=== PATIENT | female | born 1995 | race Caucasian/White ===

== ENCOUNTER 2021-10-17 13:45 | Inpatient (IN) | payer OTHER, SELFPAY ==
--- NOTE | ~2021-10-17 | CT_ITS ---
EXAMINATION: CT HEAD WITHOUT CONTRAST CLINICAL INFORMATION: Psychosis. Rule out mass. COMPARISON: None TECHNIQUE: Contiguous axial imaging was performed from the skull base to vertex without intravenous administration of contrast. This CT examination was performed using dose optimization techniques as appropriate, variously including the following: *Automated exposure control *Adjustment of mA and/or kV according to patient size (this includes techniques or standardized protocols for targeted exams where dose is matched to indication/reason for exam; i.e. extremities or head) *Use of iterative reconstruction technique DLP: 771 mGy-cm FINDINGS: There is no evidence of acute intracranial hemorrhage or territorial infarction. No abnormal mass effect or midline shift is seen. Carvalho to white matter differentiation is well preserved. No extra-axial fluid collections are identified. There are moderate degenerative changes in the right TMJ. The ventricles are normal in size. There is no abnormal attenuation within the brain parenchyma. The osseous structures and soft tissues are normal. The mastoid air cells and visualized portions of the paranasal sinuses are well aerated. CT/CT head/brain wo con IMPRESSION: No acute intracranial pathology.
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
[2021-10-17 14:10] VITALS: BP 118/98; BP 121/89; PULSE 74; PULSE 98; RESP 18; TEMP 37; O2SAT 98; BMI 23.7
[2021-10-17 14:48] LABS: MANUAL DIFF FLAG NO
[2021-10-17 14:53] LABS: Basophils Percent Auto 0.5 % (0-2); Eosinophils Absolute Auto 0.1 X10*3/uL (0.0-0.4); Eosinophils Percent Auto 1.4 % (0-4); Hematocrit 40.9 % (37.0-47.0); Imm Gran Abs Auto 0.01 X10*3/uL (0.00-0.03); Imm Gran Pct Auto 0.2 % (0.0-0.4); Lymphocytes Absolute Auto 2.2 X10*3/uL (1.2-4.9); Lymphocytes Percent Auto 34.3 % (20-40); Mean Corpuscular HGB Conc 34.2 g/dl (31.0-35.0); Mean Corpuscular Hemoglobin 31.1 pg (27.0-33.0); Mean Corpuscular Volume 90.9 fL (80.0-98.0); Mean Platelet Volume 9.4 fL (9.4-12.3); Monocytes Absolute Auto 0.4 X10*3/uL (0.1-1.2); Monocytes Percent Auto 5.6 % (2-11); Neutrophils Absolute Auto 3.6 x10*3/uL (2.0-8.3); Platelet Count 242 X10*3/uL (160-400); Red Cell Distribution Width 12.2 % (11.0-16.0); White Blood Count 6.3 X10*3/uL (4.8-10.8)
[2021-10-17 15:09] LABS: Alanine Aminotransferase 8 U/L (0-31); Albumin Level 4.1 g/dL (3.5-5.0); Alkaline Phosphatase 53 U/L (39-117); Anion Gap 10 (12-20); Aspartate Amino Transferase 13 U/L (5-31); Bilirubin Direct 0.3 mg/dL (0.0-0.5); Bilirubin Total 0.5 mg/dL (0.0-1.0); Blood Urea Nitrogen 12 mg/dL (9-16); Calcium 9.3 mg/dL (8.4-10.2); Carbon Dioxide 23 mmol/L (22-29); Chloride 110 mmol/L (96-108); Creatinine Clr Calc Pharmacy 117.1; Estimated Glomerular Filt Rate > 60; Glucose Random 87 mg/dL (60-115); Sodium 139 mmol/L (135-145); Total Protein 6.7 g/dL (6.5-8.0)
[2021-10-17 15:31] LABS: COVID-19 Test Negative (Negative)
[2021-10-17 15:43] VITALS: BP 125/82; PULSE 77; TEMP 36.8; O2SAT 100
--- NOTE | 2021-10-17 16:09 | MHC.CARE ---
Patient belongings (except her phone which is with nursing staff on S3) are in locker 11 in the POD.
[2021-10-17 20:06] LABS: Appearance Urine HAZY; Color Urine DK YELLOW; Glucose Urine UA NEG (NEG); Leukocyte Esterase Urine NEG (NEG); Nitrite Urine NEG (NEG); PH 5.5 (5.0-8.0); Specific Gravity - Urine >= 1.030 (1.005-1.025); Urine Blood 2+ (NEG); Urine Ketones NEG (NEG); Urine Protein TRACE MG/DL (NEG-TRACE)
[2021-10-17 20:07] LABS: UPreg QC Valid YES; Urine Pregnancy NEGATIVE (NEGATIVE)
[2021-10-17 20:14] LABS: Bacteria Urine 3+ /LPF; Mucus Urine 4+ /LPF; RBC Urine 0-2 /HPF (0); Squamous Epithelial Cell Urine 3+ /LPF
[2021-10-17 20:21] LABS: Amphetamine Screen Urine Not Detected (Not Detect); Barbiturates, Urine Not Detected (Not Detect); Benzodiazepines Screen Urine Not Detected (Not Detect); Cannabinoid Screen Urine Not Detected (Not Detect); Cocaine Screen Urine Not Detected (Not Detect); Fentanyl, urine Not Detected (Not Detect); Opiate Screen Urine Not Detected (Not Detect); Phencyclidine Screen Urine Not Detected (Not Detect)
--- NOTE | 2021-10-18 06:17 | PC.NURSE ---
Patient slept through the night, no distress observed/reported, patient remained isolated in her room, calm and quiet, no behavior concern at this time, patient is currently no ton any medication, disposition per care team is section 12 inpatient bed search, vss, will continue to monitor.
[2021-10-18 06:25] VITALS: BP 119/65; PULSE 96; RESP 18; TEMP 37.5; O2SAT 100
--- NOTE | 2021-10-18 08:08 | PC.NURSE ---
Pt has been awake, alert, eating full breakfast tray. Sat with this RN for a short time and voiced question as to why she is going inpatient. CARE team will f/u and speak with patient again this am. Pt denies SI, states she struggled with her parents which is what lead her to the ED. Also requested that patient be tested for STDs and concerned that she ate salmon with worms in it. This rn reassured patient that test results will be reviewed.
--- NOTE | 2021-10-18 13:32 | PC.NURSE ---
Anders, Dad. asking to speak wtih patient. pt declining at this time. [phone]
[2021-10-18 14:28] VITALS: BP 129/92; PULSE 75; RESP 18; TEMP 36.7; O2SAT 99
--- NOTE | 2021-10-18 14:36 | PC.NURSE ---
Gonorrheal/chlamydia test pending. Pt will be admitted to inpatient psych at [facility] and chooses to await results before taking prophylactic meds.
--- NOTE | 2021-10-18 15:05 | MHC.CARE ---
Patient determined to need inpatient psychiatric treatment, if she will not sign a CV, she will be admitted on a Section 12B by psychiatry.
[2021-10-18 16:12] LABS: CT PCR NOT DETECTED (Not Detect.); NG PCR NOT DETECTED (Not Detect.)
--- NOTE | 2021-10-18 17:41 | PC.NURSE ---
sitting in common area reading bible. awaits admission to M3.
--- NOTE | 2021-10-18 18:04 | PC.NURSE ---
RN to RN with Mary on M3. waiting for authorization.
[2021-10-18 19:47] LABS: COVID-19 Test Negative (Negative)
[2021-10-18 23:45] VITALS: BP 116/84; PULSE 89; RESP 18; TEMP 36.6; O2SAT 100; BMI 22.0
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
[2021-10-19 08:30] VITALS: BP 109/68; PULSE 90; TEMP 36.2
[2021-10-19] MEDS: Multivitamin TABLET 1 TAB PO (09:05)
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
[2021-10-19 18:00] VITALS: BP 99/59; PULSE 63; RESP 16; TEMP 36.4; O2SAT 95
[2021-10-19] MEDS: Lithium Carbonate ER 300 MG TABLET.ER 600 MG PO (22:05)
[2021-10-20 09:02] VITALS: BP 129/91; PULSE 72; RESP 16; TEMP 36.5; O2SAT 100
[2021-10-20] MEDS: Multivitamin TABLET 1 TAB PO (09:04)
--- NOTE | 2021-10-20 21:01 | P.PNPSI_ITS ---
Subjective Subjective Date of Service: 10/20/21 Reason For Visit: Mood Interim History: pt seen after she showered. calm, cooperative. slept well overnight, took the lithium. expresses sadness about her family members who have passed. spending her time copying passages from a muslim book she has into a notebook. also enjoying painting. denies SI/HI/AVH. less focused on scape-goating her parents. per staff, calm and cooperative. attended group this morning. received lithium last night. sleeping well. Mental Status Exam Mental Status Exam Narrative: dressed in hospital attire. adequately groomed. no PMA/PMR. poor eye contact. cooperative. speech nml in rate, amount, loudness, tone, latency. thoughts often linear in direct response to questions but somewhat more loose and tangential spontaneously. no paranoid delusions regarding her parents expressed, some bizarre thought content however.. affect constricted, non- labile, hypo-intense. mood well. denies SI/HI/AVH. Diagnostics Vital Signs (24Hr): Vital Signs - 24 hr 10/20/21 09:02 Temperature 97.7 F Pulse Rate 72 Respiratory Rate 16 Blood Pressure 129/91 H Pulse Oximetry 100 BMI result Body Mass Index 22.0 Labs Results: 10/17/21 14:41 10/17/21 14:41 Medications Medications Current Medications Acetaminophen (Acetaminophen 325 Mg Tablet) 650 mg PO Q6H PRN PRN Reason: Headache/Pain Mild Scale (1-3) Al Hydroxide/Mg Hydroxide (Magnesium Hydrox/Alum Hydrox 30 Ml Oral.Susp) 30 ml PO Q6H PRN PRN Reason: Heartburn/Nausea Hydroxyzine HCl (Hydroxyzine Hcl 25 Mg Tablet) 25 mg PO BEDTIME PRN PRN Reason: Anxiety [place] Carbonate ([place] Carbonate Er 300 Mg Tablet.Er) 600 mg PO BEDTIME [facility] Last Admin: 10/19/21 22:05 Dose: 600 mg Documented by: Magnesium Hydroxide (Milk Of Magnesia 30 Ml Oral.Susp) 30 ml PO DAILY PRN PRN Reason: Constipation Multivitamins/Vitamin C (Multivitamin Tablet) 1 tab PO DAILY CAM Last Admin: 10/20/21 09:04 Dose: 1 tab Documented by: Trazodone HCl (Trazodone Hcl 50 Mg Tablet) 50 mg PO BEDTIME PRN PRN Reason: Insomnia Allergies Allergies Allergy/AdvReac Type Severity Reaction Status Date / Time clarithromycin [From Biaxin] Allergy Altered Verified 10/17/21 14:27 Sense of Taste Pork/Porcine Containing AdvReac Stomach Verified 10/17/21 14:30 Products Upset Assessment & Plan Assessment & Plan (1) Bipolar I disorder with tres: Status: Acute Code(s): F31.10 - Bipolar disorder, current episode manic without psychotic features, unspecified Plan started lithium 600 mg PO QHS as of 10/19. I spent minutes with the patient and/or on the patient floor today, greater than?50% of which was spent counseling/coordinating care. Reason for contiued inpatient stay Substantial Risk for: harm to others, inability to function and rapid decompensation
[2021-10-20 22:18] VITALS: BP 134/90; PULSE 77; TEMP 36.5; O2SAT 100
[2021-10-20] MEDS: traZODone HCL 50 MG TABLET PO (22:25)
[2021-10-20] MEDS: Lithium Carbonate ER 300 MG TABLET.ER 600 MG PO (22:25)
[2021-10-21 07:30] VITALS: BP 111/71; PULSE 81; RESP 16; TEMP 36.8; O2SAT 100
[2021-10-21] MEDS: Multivitamin TABLET 1 TAB PO (09:47)
--- NOTE | 2021-10-21 17:46 | P.PNPSI_ITS ---
Subjective Subjective Date of Service: 10/21/21 Reason For Visit: Mood Interim History: pt reports she was a little groggy this morning on awakening, agrees to decrease trazodone from 50 mg PRN to 25 mg PRN. feeling sad for various family members of hers who have . MD asks about whom she is speaking, and she says some older relatives on her mother's side. she has been spending the vast majority of her time transcribing yazidism devotionals from her text onto journals. the devotional text was given to her by one of the relatives for whom she mourns. she asks for a chiropractor referral. MD inquires as to her mood, and she states she feels more centered, which she attributes to lithium. per staff, slept well. took trazodone, too sedated this morning. took lithium last NOC. has filled 4 journals, spending all day writing. Mental Status Exam Mental Status Exam Narrative: dressed in street wear. adequately groomed. no PMA/PMR. improved eye contact. cooperative. speech nml in rate, amount, loudness, tone, latency. thoughts generally linear in direct response to questions. no paranoid delusions regarding her parents expressed. affect constricted, non-labile, hypo-intense. no SI/HI/AVH expressed. Diagnostics Vital Signs (24Hr): Vital Signs - 24 hr 10/20/21 22:18 10/21/21 07:30 Temperature 97.7 F 98.2 F Pulse Rate 77 81 Respiratory Rate 16 Blood Pressure 134/90 H 111/71 Pulse Oximetry 100 100 BMI result Body Mass Index 22.0 Labs Results: 10/17/21 14:41 10/17/21 14:41 Medications Medications Current Medications Acetaminophen (Acetaminophen 325 Mg Tablet) 650 mg PO Q6H PRN PRN Reason: Headache/Pain Mild Scale (1-3) Al Hydroxide/Mg Hydroxide (Magnesium Hydrox/Alum Hydrox 30 Ml Oral.Susp) 30 ml PO Q6H PRN PRN Reason: Heartburn/Nausea Hydroxyzine HCl (Hydroxyzine Hcl 25 Mg Tablet) 25 mg PO BEDTIME PRN PRN Reason: Anxiety [place] Carbonate ([place] Carbonate Er 300 Mg Tablet.Er) 600 mg PO BEDTIME CAM Last Admin: 10/20/21 22:25 Dose: 600 mg Documented by: Magnesium Hydroxide (Milk Of Magnesia 30 Ml Oral.Susp) 30 ml PO DAILY PRN PRN Reason: Constipation Multivitamins/Vitamin C (Multivitamin Tablet) 1 tab PO DAILY CAM Last Admin: 10/21/21 09:47 Dose: 1 tab Documented by: Trazodone HCl (Trazodone Hcl 25 Mg Halftab) 25 mg PO BEDTIME PRN PRN Reason: Insomnia Trazodone HCl (Trazodone Hcl 25 Mg Halftab) 25 mg PO BEDTIME CAM Allergies Allergies Allergy/AdvReac Type Severity Reaction Status Date / Time clarithromycin [From Biaxin] Allergy Altered Verified 10/17/21 14:27 Sense of Taste Pork/Porcine Containing AdvReac Stomach Verified 10/17/21 14:30 Products Upset Assessment & Plan Assessment & Plan (1) Bipolar I disorder with tres: Status: Acute Code(s): F31.10 - Bipolar disorder, current episode manic without psychotic features, unspecified Plan started lithium 600 mg PO QHS as of 10/19. trazodone 50 too sedating, dosing cut to 25. I spent minutes with the patient and/or on the patient floor today, greater than?50% of which was spent counseling/coordinating care. Reason for contiued inpatient stay Substantial Risk for: harm to others, inability to function and rapid decompensation
[2021-10-21 18:00] VITALS: BP 116/76; PULSE 72; RESP 16; TEMP 36.6; O2SAT 100
[2021-10-21] MEDS: traZODone HCL 25 MG HALFTAB PO (21:17)
[2021-10-21] MEDS: Lithium Carbonate ER 300 MG TABLET.ER 600 MG PO (21:17)
[2021-10-22 08:40] VITALS: BP 118/82; PULSE 73; RESP 16; TEMP 36.6; O2SAT 100
[2021-10-22] MEDS: Multivitamin TABLET 1 TAB PO (08:43)
[2021-10-22 18:00] VITALS: BP 121/84; PULSE 73; RESP 16; TEMP 36.9; O2SAT 98
[2021-10-22] MEDS: traZODone HCL 25 MG HALFTAB PO (22:03)
[2021-10-22] MEDS: Lithium Carbonate ER 300 MG TABLET.ER 600 MG PO (22:03)
--- NOTE | 2021-10-22 23:12 | HO.PSYCHPN ---
Subjective Subjective Date of Service: 10/22/21 Reason For Visit: Mood Interim History: pt reports she is good. attended meditation group, said of it, nice to spend time with people in groups. disclosed some anxiety today about going back to her parents' house. hasn't spoken with them but agrees a family meeting prior to discharge would be quite helpful. discuss blood draw weds morning for lithium related labs. per staff, spending time journaling. good sleep, appetite. med-compliant. eating well. Mental Status Exam Mental Status Exam Narrative: dressed in street wear. adequately groomed. no PMA/PMR. improved eye contact. cooperative. speech nml in rate, amount, loudness, tone, latency. thoughts linear and logical. no paranoid delusions regarding her parents expressed. affect more flexible, non-labile, normo-intense. no SI/HI/AVH expressed. Diagnostics Vital Signs (24Hr): Vital Signs - 24 hr 10/22/21 08:40 10/22/21 18:00 Temperature 97.8 F 98.4 F Pulse Rate 73 73 Respiratory Rate 16 16 Blood Pressure 118/82 121/84 Pulse Oximetry 100 98 BMI result Body Mass Index 22.0 Labs Results: 10/17/21 14:41 10/17/21 14:41 Medications Medications Current Medications Acetaminophen (Acetaminophen 325 Mg Tablet) 650 mg PO Q6H PRN PRN Reason: Headache/Pain Mild Scale (1-3) Al Hydroxide/Mg Hydroxide (Magnesium Hydrox/Alum Hydrox 30 Ml Oral.Susp) 30 ml PO Q6H PRN PRN Reason: Heartburn/Nausea Hydroxyzine HCl (Hydroxyzine Hcl 25 Mg Tablet) 25 mg PO BEDTIME PRN PRN Reason: Anxiety [place] Carbonate ([place] Carbonate Er 300 Mg Tablet.Er) 600 mg PO BEDTIME CAM Last Admin: 10/22/21 22:03 Dose: 600 mg Documented by: Magnesium Hydroxide (Milk Of Magnesia 30 Ml Oral.Susp) 30 ml PO DAILY PRN PRN Reason: Constipation Multivitamins/Vitamin C (Multivitamin Tablet) 1 tab PO DAILY CAM Last Admin: 10/22/21 08:43 Dose: 1 tab Documented by: Trazodone HCl (Trazodone Hcl 25 Mg Halftab) 25 mg PO BEDTIME PRN PRN Reason: Insomnia Trazodone HCl (Trazodone Hcl 25 Mg Halftab) 25 mg PO BEDTIME CAM Last Admin: 10/22/21 22:03 Dose: 25 mg Documented by: Allergies Allergies Allergy/AdvReac Type Severity Reaction Status Date / Time clarithromycin [From Biaxin] Allergy Altered Verified 10/17/21 14:27 Sense of Taste Pork/Porcine Containing AdvReac Stomach Verified 10/17/21 14:30 Products Upset Assessment & Plan Assessment & Plan (1) Bipolar I disorder with tres: Status: Acute Code(s): F31.10 - Bipolar disorder, current episode manic without psychotic features, unspecified Plan started lithium 600 mg PO QHS as of 10/19. trazodone 50 too sedating, dosing cut to 25. labs 10/24. I spent minutes with the patient and/or on the patient floor today, greater than?50% of which was spent counseling/coordinating care. Reason for contiued inpatient stay Substantial Risk for: harm to others, inability to function and rapid decompensation
[2021-10-23 08:37] VITALS: BP 123/81; PULSE 78; RESP 16; TEMP 36.4; O2SAT 100
[2021-10-23] MEDS: Multivitamin TABLET 1 TAB PO (08:43)
--- NOTE | 2021-10-23 14:54 | HO.PSYCHPN ---
Subjective Subjective Date of Service: 10/23/21 Reason For Visit: Mood Interim History: pt visible, calm, pleasant. states she is a bit nervous at having received a call from her father about a visit he plans to make here. she seems to feel intimidated by him as well as treated as an employee by him. she describes her experiences with her parents as negative as a rule. informed of lab draw for tomorrow morning. per staff, attending groups. anxious about going home. eating well, social. in bathroom for 45 minutes last NOC. polite, present. Mental Status Exam Mental Status Exam Narrative: dressed in street wear. adequately groomed. no PMA/PMR. poor eye contact. cooperative. speech nml in rate, amount, loudness, tone, latency. thoughts somewhat vague and difficult to follow. paranoid delusions regarding her parents. affect more flexible, non-labile, normo-intense. no SI/HI/AVH expressed. Diagnostics Vital Signs (24Hr): Vital Signs - 24 hr 10/22/21 18:00 10/23/21 08:37 Temperature 98.4 F 97.6 F Pulse Rate 73 78 Respiratory Rate 16 16 Blood Pressure 121/84 123/81 Pulse Oximetry 98 100 BMI result Body Mass Index 22.0 Labs Results: 10/17/21 14:41 10/17/21 14:41 Medications Medications Current Medications Acetaminophen (Acetaminophen 325 Mg Tablet) 650 mg PO Q6H PRN PRN Reason: Headache/Pain Mild Scale (1-3) Al Hydroxide/Mg Hydroxide (Magnesium Hydrox/Alum Hydrox 30 Ml Oral.Susp) 30 ml PO Q6H PRN PRN Reason: Heartburn/Nausea Hydroxyzine HCl (Hydroxyzine Hcl 25 Mg Tablet) 25 mg PO BEDTIME PRN PRN Reason: Anxiety [place] Carbonate ([place] Carbonate Er 300 Mg Tablet.Er) 600 mg PO BEDTIME CAM Last Admin: 10/22/21 22:03 Dose: 600 mg Documented by: Magnesium Hydroxide (Milk Of Magnesia 30 Ml Oral.Susp) 30 ml PO DAILY PRN PRN Reason: Constipation Multivitamins/Vitamin C (Multivitamin Tablet) 1 tab PO DAILY CAM Last Admin: 10/23/21 08:43 Dose: 1 tab Documented by: Trazodone HCl (Trazodone Hcl 25 Mg Halftab) 25 mg PO BEDTIME PRN PRN Reason: Insomnia Trazodone HCl (Trazodone Hcl 25 Mg Halftab) 25 mg PO BEDTIME CAM Last Admin: 10/22/21 22:03 Dose: 25 mg Documented by: Allergies Allergies Allergy/AdvReac Type Severity Reaction Status Date / Time clarithromycin [From Biaxin] Allergy Altered Verified 10/17/21 14:27 Sense of Taste Pork/Porcine Containing AdvReac Stomach Verified 10/17/21 14:30 Products Upset Assessment & Plan Assessment & Plan (1) Bipolar I disorder with tres: Status: Acute Code(s): F31.10 - Bipolar disorder, current episode manic without psychotic features, unspecified Plan started lithium 600 mg PO QHS as of 10/19. trazodone 50 too sedating, dosing cut to 25. labs 10/24. I spent minutes with the patient and/or on the patient floor today, greater than?50% of which was spent counseling/coordinating care. Reason for contiued inpatient stay Substantial Risk for: harm to self, harm to others, inability to function and rapid decompensation
[2021-10-23 22:34] VITALS: BP 112/63; PULSE 73; TEMP 36.6; O2SAT 100
[2021-10-23] MEDS: Lithium Carbonate ER 300 MG TABLET.ER 600 MG PO (22:36)
[2021-10-23] MEDS: traZODone HCL 25 MG HALFTAB PO ×2 (22:38→22:41)
[2021-10-24 08:30] VITALS: BP 101/62; PULSE 82; RESP 16; TEMP 36.7; O2SAT 98
[2021-10-24] MEDS: Multivitamin TABLET 1 TAB PO (08:58)
[2021-10-24 09:02] LABS: MANUAL DIFF FLAG NO
[2021-10-24 09:06] LABS: Basophils Percent Auto 0.4 % (0-2); Eosinophils Absolute Auto 0.1 X10*3/uL (0.0-0.4); Eosinophils Percent Auto 2.3 % (0-4); Hematocrit 39.5 % (37.0-47.0); Hemoglobin 13.5 g/dl (12.0-16.0); Imm Gran Abs Auto 0.02 X10*3/uL (0.00-0.03); Imm Gran Pct Auto 0.4 % (0.0-0.4); Lymphocytes Absolute Auto 1.9 X10*3/uL (1.2-4.9); Lymphocytes Percent Auto 32.9 % (20-40); Mean Corpuscular HGB Conc 34.2 g/dl (31.0-35.0); Mean Corpuscular Hemoglobin 31.9 pg (27.0-33.0); Mean Corpuscular Volume 93.4 fL (80.0-98.0); Mean Platelet Volume 9.3 fL (9.4-12.3); Monocytes Absolute Auto 0.3 X10*3/uL (0.1-1.2); Monocytes Percent Auto 4.8 % (2-11); Neutrophils Absolute Auto 3.4 x10*3/uL (2.0-8.3); Neutrophils Percent Auto 59.2 % (45-73); Platelet Count 269 X10*3/uL (160-400); Red Blood Count 4.23 X10*6/uL (4.20-5.50); Red Cell Distribution Width 12.6 % (11.0-16.0); White Blood Count 5.7 X10*3/uL (4.8-10.8)
[2021-10-24 09:34] LABS: Lithium 0.33 mmol/L (0.60-1.20)
[2021-10-24 09:42] LABS: Anion Gap 13 (12-20); Blood Urea Nitrogen 14 mg/dL (9-16); Calcium 9.3 mg/dL (8.4-10.2); Carbon Dioxide 24 mmol/L (22-29); Chloride 106 mmol/L (96-108); Creatinine Clr Calc Pharmacy 111.4; Estimated Glomerular Filt Rate > 60; Glucose Random 86 mg/dL (60-115); Sodium 139 mmol/L (135-145)
--- NOTE | 2021-10-24 13:43 | P.PNPSI_ITS ---
Subjective Subjective Date of Service: 10/24/21 Reason For Visit: Mood Interim History: pt reports she met with her mother yesterday and father today. remains distrustful of them, feeling they are trying to manipulate her. thoughts continue vague, difficulty expressing herself cogently. labs reviewed, pt agreeable to increase lithium dosing from 600 mg at HS to 1200 mg at HS after li thium level came back this morning at 0.33. feels 37.5 - 50 mg of trazodone at HS would be good for sleep. per staff, flat, circumstantial. attending art group. met with mother which initially seemed to go well and then soured by the end. frsutrated her parents seem to want her to stay at their house after discharge. moderate dep/anx. sleeping well on trazodone. Mental Status Exam Mental Status Exam Narrative: dressed in street wear. adequately groomed. no PMA/PMR. reduced eye contact. cooperative. speech nml in rate, amount, loudness, tone, latency. thoughts somewhat vague and difficult to follow. paranoid delusions regarding her parents. affect more flexible, non-labile, normo-intense. no SI/HI/AVH expressed. Diagnostics Vital Signs (24Hr): Vital Signs - 24 hr 10/23/21 22:34 Temperature 98 F Pulse Rate 73 Blood Pressure 112/63 Pulse Oximetry 100 BMI result Body Mass Index 22.0 Labs Results: 10/24/21 08:45 10/24/21 08:45 Labs: Laboratory Results - last 48 hr 10/24/21 10/24/21 10/24/21 08:45 08:45 08:45 WBC 5.7 RBC 4.23 Hgb 13.5 Hct 39.5 MCV 93.4 MCH 31.9 MCHC 34.2 RDW 12.6 Plt Count 269 MPV 9.3 L Immature Gran % (Auto) 0.4 Neut % (Auto) 59.2 Lymph % (Auto) 32.9 [place] % (Auto) 4.8 Eos % (Auto) 2.3 Baso % (Auto) 0.4 Lymph # (Auto) 1.9 [place] # (Auto) 0.3 Eos # (Auto) 0.1 Baso # (Auto) 0.0 Abs Immat Gran (auto) 0.02 Absolute Neuts (auto) 3.4 Absolute Nucleated RBC 0.000 Nucleated RBC % (auto) 0.0 Sodium 139 Potassium 4.0 Chloride 106 Carbon Dioxide 24 Anion Gap 13 BUN 14 Creatinine 0.82 Estim Creat Clear Calc 111.4 Estimated GFR > 60 Random Glucose 86 Calcium 9.3 [place] 0.33 L Medications Medications Current Medications Acetaminophen (Acetaminophen 325 Mg Tablet) 650 mg PO Q6H PRN PRN Reason: Headache/Pain Mild Scale (1-3) Al Hydroxide/Mg Hydroxide (Magnesium Hydrox/Alum Hydrox 30 Ml Oral.Susp) 30 ml PO Q6H PRN PRN Reason: Heartburn/Nausea Hydroxyzine HCl (Hydroxyzine Hcl 25 Mg Tablet) 25 mg PO BEDTIME PRN PRN Reason: Anxiety [place] Carbonate ([place] Carbonate Er 300 Mg Tablet.Er) 1,200 mg PO BEDTIME CAM Magnesium Hydroxide (Milk Of Magnesia 30 Ml Oral.Susp) 30 ml PO DAILY PRN PRN Reason: Constipation Multivitamins/Vitamin C (Multivitamin Tablet) 1 tab PO DAILY COUNTS INCLUDE 234 BEDS AT THE [facility] Last Admin: 10/24/21 08:58 Dose: 1 tab Documented by: Trazodone HCl (Trazodone Hcl 25 Mg Halftab) 25 mg PO BEDTIME PRN PRN Reason: Insomnia Last Admin: 10/23/21 22:41 Dose: 25 mg Documented by: Trazodone HCl (Trazodone Hcl 25 Mg Halftab) 25 mg PO BEDTIME CAM Last Admin: 10/23/21 22:38 Dose: 25 mg Documented by: Allergies Allergies Allergy/AdvReac Type Severity Reaction Status Date / Time clarithromycin [From Biaxin] Allergy Altered Verified 10/17/21 14:27 Sense of Taste Pork/Porcine Containing AdvReac Stomach Verified 10/17/21 14:30 Products Upset Assessment & Plan Assessment & Plan (1) Bipolar I disorder with tres: Status: Acute Code(s): F31.10 - Bipolar disorder, current episode manic without psychotic features, unspecified Plan started lithium 600 mg PO QHS as of 10/19, increased to 1200 mg QHS as of 10/24 (10/24 lithium level 0.33). trazodone 50 too sedating, dosing cut to 25. may try 37.5-50 mg nightly. stabilize, discharge to outpt care. I spent minutes with the patient and/or on the patient floor today, greater than?50% of which was spent counseling/coordinating care. Reason for contiued inpatient stay Substantial Risk for: inability to function and rapid decompensation
[2021-10-24 18:00] VITALS: BP 113/74; PULSE 69; TEMP 36.6; O2SAT 100
[2021-10-24] MEDS: traZODone HCL 25 MG HALFTAB 37.5 MG PO (22:51)
[2021-10-24] MEDS: Lithium Carbonate ER 300 MG TABLET.ER 1200 MG PO (22:51)
[2021-10-25 07:00] VITALS: BMI 22.9
[2021-10-25 10:00] VITALS: BP 118/82; PULSE 72; RESP 16; TEMP 36.6; O2SAT 100
[2021-10-25] MEDS: Multivitamin TABLET 1 TAB PO (10:26)
[2021-10-25] MEDS: Acetaminophen 325 MG TABLET 650 MG PO (10:27)
--- NOTE | 2021-10-25 13:20 | HO.PSYCHPN ---
Subjective Subjective Date of Service: 10/25/21 Reason For Visit: Mood Interim History: pt reports she slept very soundly last night, didn't wake up at all. feeling less anxious today. relaxed, less cloudiness than yesterday. per staff, visible, pleasant, anxious. doing crafts. attending groups. preoccupied with loss of family members. slept well overnight. Mental Status Exam Mental Status Exam Narrative: dressed in street wear. adequately groomed. no PMA/PMR. better eye contact. cooperative. speech nml in rate, amount, loudness, latency. reduced prosody. thoughts more linear and structured. no paranoid delusions regarding her parents expressed today. affect more flexible, non-labile, normo-intense. no SI/HI/AVH expressed. Diagnostics Vital Signs (24Hr): Vital Signs - 24 hr 10/24/21 18:00 Temperature 97.9 F Pulse Rate 69 Blood Pressure 113/74 Pulse Oximetry 100 BMI result Body Mass Index 22.0 Labs Results: 10/24/21 08:45 10/24/21 08:45 Labs: Laboratory Results - last 48 hr 10/24/21 10/24/21 10/24/21 08:45 08:45 08:45 WBC 5.7 RBC 4.23 Hgb 13.5 Hct 39.5 MCV 93.4 MCH 31.9 MCHC 34.2 RDW 12.6 Plt Count 269 MPV 9.3 L Immature Gran % (Auto) 0.4 Neut % (Auto) 59.2 Lymph % (Auto) 32.9 [place] % (Auto) 4.8 Eos % (Auto) 2.3 Baso % (Auto) 0.4 Lymph # (Auto) 1.9 [place] # (Auto) 0.3 Eos # (Auto) 0.1 Baso # (Auto) 0.0 Abs Immat Gran (auto) 0.02 Absolute Neuts (auto) 3.4 Absolute Nucleated RBC 0.000 Nucleated RBC % (auto) 0.0 Sodium 139 Potassium 4.0 Chloride 106 Carbon Dioxide 24 Anion Gap 13 BUN 14 Creatinine 0.82 Estim Creat Clear Calc 111.4 Estimated GFR > 60 Random Glucose 86 Calcium 9.3 [place] 0.33 L Medications Medications Current Medications Acetaminophen (Acetaminophen 325 Mg Tablet) 650 mg PO Q6H PRN PRN Reason: Headache/Pain Mild Scale (1-3) Last Admin: 10/25/21 10:27 Dose: 650 mg Documented by: Al Hydroxide/Mg Hydroxide (Magnesium Hydrox/Alum Hydrox 30 Ml Oral.Susp) 30 ml PO Q6H PRN PRN Reason: Heartburn/Nausea Hydroxyzine HCl (Hydroxyzine Hcl 25 Mg Tablet) 25 mg PO BEDTIME PRN PRN Reason: Anxiety [place] Carbonate ([place] Carbonate Er 300 Mg Tablet.Er) 1,200 mg PO BEDTIME [facility] Last Admin: 10/24/21 22:51 Dose: 1,200 mg Documented by: Magnesium Hydroxide (Milk Of Magnesia 30 Ml Oral.Susp) 30 ml PO DAILY PRN PRN Reason: Constipation Multivitamins/Vitamin C (Multivitamin Tablet) 1 tab PO DAILY [facility] Last Admin: 10/25/21 10:26 Dose: 1 tab Documented by: Trazodone HCl (Trazodone Hcl 25 Mg Halftab) 25 mg PO BEDTIME PRN PRN Reason: Insomnia Last Admin: 10/23/21 22:41 Dose: 25 mg Documented by: Trazodone HCl (Trazodone Hcl 25 Mg Halftab) 37.5 mg PO BEDTIME CAM Last Admin: 10/24/21 22:51 Dose: 37.5 mg Documented by: Allergies Allergies Allergy/AdvReac Type Severity Reaction Status Date / Time clarithromycin [From Biaxin] Allergy Altered Verified 10/17/21 14:27 Sense of Taste Pork/Porcine Containing AdvReac Stomach Verified 10/17/21 14:30 Products Upset Assessment & Plan Assessment & Plan (1) Bipolar I disorder with tres: Status: Acute Code(s): F31.10 - Bipolar disorder, current episode manic without psychotic features, unspecified Plan started lithium 600 mg PO QHS as of 10/19, increased to 1200 mg QHS as of 10/24 (10/24 lithium level 0.33). trazodone 50 too sedating, dosing cut to 25. may try 37.5-50 mg nightly. stabilize, discharge to outpt care. I spent minutes with the patient and/or on the patient floor today, greater than?50% of which was spent counseling/coordinating care. Reason for contiued inpatient stay Substantial Risk for: inability to function and rapid decompensation
[2021-10-25] MEDS: Lithium Carbonate ER 300 MG TABLET.ER 1200 MG PO (22:18)
[2021-10-25] MEDS: traZODone HCL 25 MG HALFTAB 37.5 MG PO (22:19)
[2021-10-26] MEDS: Multivitamin TABLET 1 TAB PO (10:13)
[2021-10-26 10:28] VITALS: BP 112/76; PULSE 76; RESP 16; TEMP 36.6; O2SAT 100
--- NOTE | 2021-10-26 18:22 | P.PNPSI_ITS ---
Subjective Subjective Date of Service: 10/26/21 Reason For Visit: Mood Interim History: Patient seen and discussed with team. Patient evaluated this today and upon interview she reports she slept fine last night on trazodone 50 mg. Says her mood is pretty much the same, has been keeping busy writing from her manual of [email or web address], filling notebooks. Says she has been showering, eating, didn't have groups today so didn't attend. In the milieu, patient is safe but isolative in behavior. Denies active SI. Denies irritability or assaultive ideation. Says she feels safe. Medication Compliance: Yes Side effects from medications: No Attending Groups: No Review of Systems Acute medical concerns: No Medical Review of Systems: unchanged Mental Status Exam Mental Status Exam Narrative: A&O. Okay grooming, casual dress, blanket wrapped around her, sitting at desk in room eating dinner. Moderate eye contact, attentive. No Tics or Tremors. No abnormal involuntary movements. Calm, but guarded and not overly engaged. Non-pressured speech, spontaneous with regular rate and rhythm, normal volume and prosody. No prolonged speech latency or dysarthria. Mood is ?fine,? affect is blunted. Denies SI/SIB/HI upon inquiry. Denies A/VH or delusional thought content. Thoughts are coherent, organized. No known cognitive or memory impairm ent. Insight/ Judgment fair and adequate. Diagnostics Vital Signs (24Hr): Vital Signs - 24 hr 10/26/21 10:28 Temperature 97.9 F Pulse Rate 76 Respiratory Rate 16 Blood Pressure 112/76 Pulse Oximetry 100 BMI result Body Mass Index 22.9 Labs Results: 10/24/21 08:45 10/24/21 08:45 Imaging Radiology Impressions: ITS Impressions Head CT 10/25/21 17:09 IMPRESSION: No acute intracranial pathology. Medications Medications Current Medications Acetaminophen (Acetaminophen 325 Mg Tablet) 650 mg PO Q6H PRN PRN Reason: Headache/Pain Mild Scale (1-3) Last Admin: 10/25/21 10:27 Dose: 650 mg Documented by: Al Hydroxide/Mg Hydroxide (Magnesium Hydrox/Alum Hydrox 30 Ml Oral.Susp) 30 ml PO Q6H PRN PRN Reason: Heartburn/Nausea Hydroxyzine HCl (Hydroxyzine Hcl 25 Mg Tablet) 25 mg PO BEDTIME PRN PRN Reason: Anxiety [place] Carbonate ([place] Carbonate Er 300 Mg Tablet.Er) 1,200 mg PO BEDTIME [facility] Last Admin: 10/25/21 22:18 Dose: 1,200 mg Documented by: Magnesium Hydroxide (Milk Of Magnesia 30 Ml Oral.Susp) 30 ml PO DAILY PRN PRN Reason: Constipation Multivitamins/Vitamin C (Multivitamin Tablet) 1 tab PO DAILY [facility] Last Admin: 10/26/21 10:13 Dose: 1 tab Documented by: Trazodone HCl (Trazodone Hcl 25 Mg Halftab) 25 mg PO BEDTIME PRN PRN Reason: Insomnia Last Admin: 10/23/21 22:41 Dose: 25 mg Documented by: Trazodone HCl (Trazodone Hcl 25 Mg Halftab) 37.5 mg PO BEDTIME [facility] Last Admin: 10/25/21 22:19 Dose: 37.5 mg Documented by: Allergies Allergies Allergy/AdvReac Type Severity Reaction Status Date / Time clarithromycin [From Biaxin] Allergy Altered Verified 10/17/21 14:27 Sense of Taste Pork/Porcine Containing AdvReac Stomach Verified 10/17/21 14:30 Products Upset Assessment & Plan Assessment & Plan (1) Bipolar I disorder with tres: Status: Acute Code(s): F31.10 - Bipolar disorder, current episode manic without psychotic features, unspecified Plan started lithium 600 mg PO QHS as of 10/19, increased to 1200 mg QHS as of 10/24 (10/24 lithium level 0.33). trazodone 50 too sedating, dosing cut to 25. may try 37.5-50 mg nightly. stabilize, discharge to outpt care. 10/26: No med changes, pt wants to try 37.5 mg of trazodone this evening. I spent minutes with the patient and/or on the patient floor today, greater than?50% of which was spent counseling/coordinating care. Reason for contiued inpatient stay Substantial Risk for: med/psych decompensation
[2021-10-26 20:35] VITALS: BP 116/73; PULSE 85; TEMP 36.6; O2SAT 100
[2021-10-26] MEDS: Lithium Carbonate ER 300 MG TABLET.ER 1200 MG PO (22:46)
[2021-10-26] MEDS: traZODone HCL 25 MG HALFTAB 37.5 MG PO (22:47)
[2021-10-27 08:15] VITALS: BP 110/61; PULSE 88; RESP 16; TEMP 36.3; O2SAT 100
[2021-10-27] MEDS: Multivitamin TABLET 1 TAB PO (08:25)
--- NOTE | 2021-10-27 09:31 | P.PNPSI_ITS ---
Subjective Subjective Date of Service: 10/27/21 Reason For Visit: Mood Subjective Notes: Conditional Voluntary Interim History: Patient was seen and discussed in rounds today. Records and plans were reviewed. She is doing better. She is brighter. Affect continues to be flat. She has been compliant with treatment. No complaints or side effects. Eating and sleeping adequately. No SI. No changes were made today and current regimen is maintained Medication Compliance: Yes Side effects from medications: No Review of Systems Review of Systems Constitutional : No Fever, No Chills ENT/Mouth : No Ear Pain, No Nasal Congestion, No sore throat Eyes: No Eye Pain, No Swelling, No Redness Cardiovascular : No Chest Pain, No SOB Respiratory : No Cough, No Sputum, No Dyspnea Gastrointestinal : No Nausea, No Vomiting, No Diarrhea, No Hematochezia, No Melena Genitourinary : No Dysuria, No Urinary Frequency, No Hematuria Musculoskeletal : No Myalgias Skin : No Skin Lesions, No rash Neuro : No Weakness, No Numbness, No Paresthesias, No Dizziness, No Headache Psych : positive Anxiety, no Depression, no SI/HI Heme/Lymph: No Lymphadenopathy Endocrine : No Polyuria, No Polydipsia All other systems reviewed and are negative Mental Status Exam Mental Status Exam Narrative: In today's visit she is alert, oriented and pleasant. Normal speech. Moderate eye contact. Affect is appropriate and constricted. No signs of psychosis. No delusions. No suicidal or homicidal ideations. Cognitively is grossly intact with slow thought processes. Judgment is intact Diagnostics Vital Signs (24Hr): Vital Signs - 24 hr 10/26/21 10:28 10/26/21 20:35 10/27/21 08:15 Temperature 97.9 F 97.8 F 97.4 F Pulse Rate 76 85 88 Respiratory Rate 16 16 Blood Pressure 112/76 116/73 110/61 Pulse Oximetry 100 100 100 BMI result Body Mass Index 22.9 Labs Results: 10/24/21 08:45 10/24/21 08:45 Imaging Radiology Impressions: ITS Impressions Head CT 10/25/21 17:09 IMPRESSION: No acute intracranial pathology. Medications Medications Current Medications Acetaminophen (Acetaminophen 325 Mg Tablet) 650 mg PO Q6H PRN PRN Reason: Headache/Pain Mild Scale (1-3) Last Admin: 10/25/21 10:27 Dose: 650 mg Documented by: Al Hydroxide/Mg Hydroxide (Magnesium Hydrox/Alum Hydrox 30 Ml Oral.Susp) 30 ml PO Q6H PRN PRN Reason: Heartburn/Nausea Hydroxyzine HCl (Hydroxyzine Hcl 25 Mg Tablet) 25 mg PO BEDTIME PRN PRN Reason: Anxiety [place] Carbonate ([place] Carbonate Er 300 Mg Tablet.Er) 1,200 mg PO BEDTIME [facility] Last Admin: 10/26/21 22:46 Dose: 1,200 mg Documented by: Magnesium Hydroxide (Milk Of Magnesia 30 Ml Oral.Susp) 30 ml PO DAILY PRN PRN Reason: Constipation Multivitamins/Vitamin C (Multivitamin Tablet) 1 tab PO DAILY [facility] Last Admin: 10/27/21 08:25 Dose: 1 tab Documented by: Trazodone HCl (Trazodone Hcl 25 Mg Halftab) 25 mg PO BEDTIME PRN PRN Reason: Insomnia Last Admin: 10/23/21 22:41 Dose: 25 mg Documented by: Trazodone HCl (Trazodone Hcl 25 Mg Halftab) 37.5 mg PO BEDTIME [facility] Last Admin: 10/26/21 22:47 Dose: 37.5 mg Documented by: Allergies Allergies Allergy/AdvReac Type Severity Reaction Status Date / Time clarithromycin [From Biaxin] Allergy Altered Verified 10/17/21 14:27 Sense of Taste Pork/Porcine Containing AdvReac Stomach Verified 10/17/21 14:30 Products Upset Assessment & Plan Assessment & Plan (1) Bipolar I disorder with tres: Status: Acute Code(s): F31.10 - Bipolar disorder, current episode manic without psychotic features, unspecified Plan started lithium 600 mg PO QHS as of 10/19, increased to 1200 mg QHS as of 10/24 (10/24 lithium level 0.33). trazodone 50 too sedating, dosing cut to 25. may try 37.5-50 mg nightly. stabilize, discharge to outpt care. 10/27/2021: Continue current regimen and plans with no changes today I spent minutes with the patient and/or on the patient floor today, greater than?50% of which was spent counseling/coordinating care. Reason for contiued inpatient stay Substantial Risk for: med/psych decompensation
[2021-10-27 22:00] VITALS: BP 127/74; PULSE 76; TEMP 36.6; O2SAT 100
[2021-10-27] MEDS: traZODone HCL 25 MG HALFTAB 37.5 MG PO (22:19)
[2021-10-27] MEDS: Lithium Carbonate ER 300 MG TABLET.ER 1200 MG PO (22:19)
[2021-10-28] MEDS: Multivitamin TABLET 1 TAB PO (08:47)
[2021-10-28 08:53] VITALS: BP 121/79; PULSE 75; RESP 16; TEMP 36.6; O2SAT 99
--- NOTE | 2021-10-28 09:11 | P.PNPSI_ITS ---
Subjective Subjective Date of Service: 10/28/21 Reason For Visit: Mood Subjective Notes: Conditional Voluntary Medical Problems Affecting Mental Status: No Interim History: Patient was seen and discussed in rounds. Records were reviewed. She continues to be fairly quiet and isolative. She is a little more interactive. She is med compliant. Denies any symptoms of depression or anxiety. No hallucinations. No complaints or side effects. No changes were made Medication Compliance: Yes Side effects from medications: No Review of Systems Review of Systems Constitutional : No Fever, No Chills ENT/Mouth : No Ear Pain, No Nasal Congestion, No sore throat Eyes: No Eye Pain, No Swelling, No Redness Cardiovascular : No Chest Pain, No SOB Respiratory : No Cough, No Sputum, No Dyspnea Gastrointestinal : No Nausea, No Vomiting, No Diarrhea, No Hematochezia, No Melena Genitourinary : No Dysuria, No Urinary Frequency, No Hematuria Musculoskeletal : No Myalgias Skin : No Skin Lesions, No rash Neuro : No Weakness, No Numbness, No Paresthesias, No Dizziness, No Headache Psych : positive Anxiety, no Depression, no SI/HI Heme/Lymph: No Lymphadenopathy Endocrine : No Polyuria, No Polydipsia All other systems reviewed and are negative Mental Status Exam Mental Status Exam Narrative: In today's visit she is alert, oriented and pleasant. Normal speech. Moderate eye contact. Affect is appropriate and constricted. No signs of psychosis. No delusions. No suicidal or homicidal ideations. Cognitively is grossly intact with slow thought processes. Judgment is intact Diagnostics Vital Signs (24Hr): Vital Signs - 24 hr 10/27/21 22:00 10/28/21 08:53 Temperature 97.8 F 97.8 F Pulse Rate 76 75 Respiratory Rate 16 Blood Pressure 127/74 121/79 Pulse Oximetry 100 99 BMI result Body Mass Index 22.9 Labs Results: 10/24/21 08:45 10/24/21 08:45 Imaging Radiology Impressions: ITS Impressions Head CT 10/25/21 17:09 IMPRESSION: No acute intracranial pathology. Medications Medications Current Medications Acetaminophen (Acetaminophen 325 Mg Tablet) 650 mg PO Q6H PRN PRN Reason: Headache/Pain Mild Scale (1-3) Last Admin: 10/25/21 10:27 Dose: 650 mg Documented by: Al Hydroxide/Mg Hydroxide (Magnesium Hydrox/Alum Hydrox 30 Ml Oral.Susp) 30 ml PO Q6H PRN PRN Reason: Heartburn/Nausea Hydroxyzine HCl (Hydroxyzine Hcl 25 Mg Tablet) 25 mg PO BEDTIME PRN PRN Reason: Anxiety [place] Carbonate ([place] Carbonate Er 300 Mg Tablet.Er) 1,200 mg PO BEDTIME [facility] Last Admin: 10/27/21 22:19 Dose: 1,200 mg Documented by: Magnesium Hydroxide (Milk Of Magnesia 30 Ml Oral.Susp) 30 ml PO DAILY PRN PRN Reason: Constipation Multivitamins/Vitamin C (Multivitamin Tablet) 1 tab PO DAILY [facility] Last Admin: 10/28/21 08:47 Dose: 1 tab Documented by: Trazodone HCl (Trazodone Hcl 25 Mg Halftab) 25 mg PO BEDTIME PRN PRN Reason: Insomnia Last Admin: 10/23/21 22:41 Dose: 25 mg Documented by: Trazodone HCl (Trazodone Hcl 25 Mg Halftab) 37.5 mg PO BEDTIME [facility] Last Admin: 10/27/21 22:19 Dose: 37.5 mg Documented by: Allergies Allergies Allergy/AdvReac Type Severity Reaction Status Date / Time clarithromycin [From Biaxin] Allergy Altered Verified 10/17/21 14:27 Sense of Taste Pork/Porcine Containing AdvReac Stomach Verified 10/17/21 14:30 Products Upset Assessment & Plan Assessment & Plan (1) Bipolar I disorder with tres: Status: Acute Code(s): F31.10 - Bipolar disorder, current episode manic without psychotic features, unspecified Plan started lithium 600 mg PO QHS as of 10/19, increased to 1200 mg QHS as of 10/24 (10/24 lithium level 0.33). trazodone 50 too sedating, dosing cut to 25. may try 37.5-50 mg nightly. stabilize, discharge to outpt care. 10/27/2021: Continue current regimen and plans with no changes today 10/28: Continue current regimen and plans I spent minutes with the patient and/or on the patient floor today, greater than?50% of which was spent counseling/coordinating care. Reason for contiued inpatient stay Substantial Risk for: other
[2021-10-28 18:00] VITALS: BP 134/72; PULSE 88; RESP 18; TEMP 36.6; O2SAT 99
[2021-10-28] MEDS: Acetaminophen 325 MG TABLET 650 MG PO (20:46)
[2021-10-28] MEDS: Lithium Carbonate ER 300 MG TABLET.ER 1200 MG PO (20:47)
[2021-10-28] MEDS: traZODone HCL 25 MG HALFTAB 37.5 MG PO (20:47)
[2021-10-29] MEDS: Multivitamin TABLET 1 TAB PO (10:16)
[2021-10-29 12:19] VITALS: BP 104/73; PULSE 67; RESP 14; TEMP 36.4; O2SAT 100
--- NOTE | 2021-10-29 14:03 | P.PNPSI_ITS ---
Subjective Subjective Date of Service: 10/29/21 Reason For Visit: Mood Interim History: pt found resting in her bed. comes with MD to interview room for discussion. appears similar to late last week, perhaps with a bit more eye contact and a bit more verbal/forthcoming. review results of head CT. seems somewhat hypochondriacal. states her mood is good but a little anxious due to having met with her father several times over the weekend. feels he is trying to be her doctor and does not want him over-involved in her Tx. MD suggests the addition of low-dose haldol to her regimen, 5 mg at bedtime, and she agrees. will start tonight. informed of plan to check lithium level again tomorrow. per staff, anxious re DC. +grps, socializing. no SI/HI/AVH. asking not to visit with parents until leaving. Mental Status Exam Mental Status Exam Narrative: dressed in street wear. adequately groomed. no PMA/PMR. better eye contact. cooperative. speech nml in rate, amount, loudness, latency. reduced prosody. thoughts more linear and structured. no paranoid delusions regarding her parents expressed today. affect more flexible, non-labile, normo-intense. no SI/HI/AVH expressed. Diagnostics Vital Signs (24Hr): Vital Signs - 24 hr 10/28/21 18:00 10/29/21 12:19 Temperature 97.9 F 97.5 F Pulse Rate 88 67 Respiratory Rate 18 14 Blood Pressure 134/72 104/73 Pulse Oximetry 99 100 BMI result Body Mass Index 22.9 Labs Results: 10/24/21 08:45 10/24/21 08:45 Imaging Radiology Impressions: ITS Impressions Head CT 10/25/21 17:09 IMPRESSION: No acute intracranial pathology. Medications Medications Current Medications Acetaminophen (Acetaminophen 325 Mg Tablet) 650 mg PO Q6H PRN PRN Reason: Headache/Pain Mild Scale (1-3) Last Admin: 10/28/21 20:46 Dose: 650 mg Documented by: Al Hydroxide/Mg Hydroxide (Magnesium Hydrox/Alum Hydrox 30 Ml Oral.Susp) 30 ml PO Q6H PRN PRN Reason: Heartburn/Nausea Haloperidol (Haloperidol 5 Mg Tablet) 5 mg PO BEDTIME [facility] Hydroxyzine HCl (Hydroxyzine Hcl 25 Mg Tablet) 25 mg PO BEDTIME PRN PRN Reason: Anxiety [place] Carbonate ([place] Carbonate Er 300 Mg Tablet.Er) 1,200 mg PO BEDTIME [facility] Last Admin: 10/28/21 20:47 Dose: 1,200 mg Documented by: Magnesium Hydroxide (Milk Of Magnesia 30 Ml Oral.Susp) 30 ml PO DAILY PRN PRN Reason: Constipation Multivitamins/Vitamin C (Multivitamin Tablet) 1 tab PO DAILY [facility] Last Admin: 10/29/21 10:16 Dose: 1 tab Documented by: Trazodone HCl (Trazodone Hcl 25 Mg Halftab) 25 mg PO BEDTIME PRN PRN Reason: Insomnia Last Admin: 10/23/21 22:41 Dose: 25 mg Documented by: Trazodone HCl (Trazodone Hcl 25 Mg Halftab) 37.5 mg PO BEDTIME [facility] Last Admin: 10/28/21 20:47 Dose: 37.5 mg Documented by: Allergies Allergies Allergy/AdvReac Type Severity Reaction Status Date / Time clarithromycin [From Biaxin] Allergy Altered Verified 10/17/21 14:27 Sense of Taste Pork/Porcine Containing AdvReac Stomach Verified 10/17/21 14:30 Products Upset Assessment & Plan Assessment & Plan (1) Bipolar I disorder with tres: Status: Acute Code(s): F31.10 - Bipolar disorder, current episode manic without psychotic features, unspecified Plan started lithium 600 mg PO QHS as of 10/19, increased to 1200 mg QHS as of 10/24 (10/24 lithium level 0.33). trazodone 50 too sedating, dosing cut to 25. may try 37.5-50 mg nightly. starting haldol 5 mg QHS as of 10/29 for lingering paranoid flair. rechecking lithium level 10/30 after 5 days at 1200 mg per day. stabilize, discharge to outpt care. I spent minutes with the patient and/or on the patient floor today, greater than?50% of which was spent counseling/coordinating care. Reason for contiued inpatient stay Substantial Risk for: inability to function and rapid decompensation
[2021-10-29 18:00] VITALS: BP 126/72; PULSE 69; RESP 18; TEMP 37; O2SAT 69
[2021-10-29] MEDS: traZODone HCL 25 MG HALFTAB 37.5 MG PO (22:25)
[2021-10-29] MEDS: Lithium Carbonate ER 300 MG TABLET.ER 1200 MG PO (22:25)
[2021-10-29] MEDS: HaloperidoL 5 MG TABLET PO (22:25)
[2021-10-30 07:48] LABS: Anion Gap 8 (12-20); Blood Urea Nitrogen 17 mg/dL (9-16); Carbon Dioxide 28 mmol/L (22-29); Chloride 108 mmol/L (96-108); Creatinine Clr Calc Pharmacy 110.1; Estimated Glomerular Filt Rate > 60; Glucose Random 94 mg/dL (60-115); Potassium 4.8 mmol/L (3.3-5.1); Sodium 139 mmol/L (135-145)
[2021-10-30 09:58] VITALS: BP 116/62; PULSE 71; RESP 16; TEMP 36.7; O2SAT 99
[2021-10-30] MEDS: Multivitamin TABLET 1 TAB PO (09:58)
--- NOTE | 2021-10-30 11:32 | HO.PSYCHPN ---
Subjective Subjective Date of Service: 10/30/21 Reason For Visit: Mood Interim History: pt reports she has had no ill effects from med changes last night, perhaps slept more heavily than prior. informed pt haldol may be sedating and she can cut back on trazodone if she finds herself sleeping too much. she stated she feels ready to return to her parents' home. she states she is not angry with them although remains somewhat distrustful and wanting to keep them at a distance. still, not expressing desire to leave their house immediately, but rather saying she will find work and stay at her parents' house as long as she can. that is to say, her attitude toward her parents has softened quite considerably. she has aftercare in place and would like to discharge tomorrow. per staff, slept 8 hours overnight. quiet, isolative. denies SI/HI/AVH. denies somatic Sx. social, with peers eves. planning to DC tomorrow. lithium level this morning 0.8. Mental Status Exam Mental Status Exam Narrative: dressed in street wear. adequately groomed. no PMA/PMR. better eye contact. cooperative. speech nml in rate, amount, loudness, latency. reduced prosody. thoughts more linear and structured. no paranoid delusions regarding her parents expressed today. affect more flexible, non-labile, normo-intense. no SI/HI/AVH expressed. Diagnostics Vital Signs (24Hr): Vital Signs - 24 hr 10/29/21 12:19 10/29/21 18:00 10/30/21 09:58 Temperature 97.5 F 98.6 F 98.0 F Pulse Rate 67 69 71 Respiratory Rate 14 18 16 Blood Pressure 104/73 126/72 116/62 Pulse Oximetry 100 69 L 99 BMI result Body Mass Index 22.9 Labs Results: 10/24/21 08:45 10/30/21 07:23 Labs: Laboratory Results - last 48 hr 10/30/21 10/30/21 07:23 07:23 Sodium 139 Potassium 4.8 Chloride 108 Carbon Dioxide 28 Anion Gap 8 L BUN 17 H Creatinine 0.83 Estim Creat Clear Calc 110.1 Estimated GFR > 60 Random Glucose 94 Calcium 9.0 [place] 0.80 Imaging Radiology Impressions: ITS Impressions Head CT 10/25/21 17:09 IMPRESSION: No acute intracranial pathology. Medications Medications Current Medications Acetaminophen (Acetaminophen 325 Mg Tablet) 650 mg PO Q6H PRN PRN Reason: Headache/Pain Mild Scale (1-3) Last Admin: 10/28/21 20:46 Dose: 650 mg Documented by: Al Hydroxide/Mg Hydroxide (Magnesium Hydrox/Alum Hydrox 30 Ml Oral.Susp) 30 ml PO Q6H PRN PRN Reason: Heartburn/Nausea Haloperidol (Haloperidol 5 Mg Tablet) 5 mg PO BEDTIME [facility] Last Admin: 10/29/21 22:25 Dose: 5 mg Documented by: Hydroxyzine HCl (Hydroxyzine Hcl 25 Mg Tablet) 25 mg PO BEDTIME PRN PRN Reason: Anxiety [place] Carbonate ([place] Carbonate Er 300 Mg Tablet.Er) 1,200 mg PO BEDTIME [facility] Last Admin: 10/29/21 22:25 Dose: 1,200 mg Documented by: Magnesium Hydroxide (Milk Of Magnesia 30 Ml Oral.Susp) 30 ml PO DAILY PRN PRN Reason: Constipation Multivitamins/Vitamin C (Multivitamin Tablet) 1 tab PO DAILY [facility] Last Admin: 10/30/21 09:58 Dose: 1 tab Documented by: Trazodone HCl (Trazodone Hcl 25 Mg Halftab) 25 mg PO BEDTIME PRN PRN Reason: Insomnia Last Admin: 10/23/21 22:41 Dose: 25 mg Documented by: Trazodone HCl (Trazodone Hcl 25 Mg Halftab) 37.5 mg PO BEDTIME [facility] Last Admin: 10/29/21 22:25 Dose: 37.5 mg Documented by: Allergies Allergies Allergy/AdvReac Type Severity Reaction Status Date / Time clarithromycin [From Biaxin] Allergy Altered Verified 10/17/21 14:27 Sense of Taste Pork/Porcine Containing AdvReac Stomach Verified 10/17/21 14:30 Products Upset Assessment & Plan Assessment & Plan (1) Bipolar I disorder with tres: Status: Acute Code(s): F31.10 - Bipolar disorder, current episode manic without psychotic features, unspecified Plan started lithium 600 mg PO QHS as of 10/19, increased to 1200 mg QHS as of 10/24 (10/24 lithium level 0.33, 10/30 level 0.8). trazodone 50 too sedating, dosing cut to 25. may try 37.5-50 mg nightly. started haldol 5 mg QHS as of 10/29 for lingering paranoid flair. tolerating well. discharge to outpt care 10/31. I spent ___25___ minutes with the patient and/or on the patient floor today, greater than?50% of which was spent counseling/coordinating care. Patient educated on: medication risk/benefits Reason for contiued inpatient stay Substantial Risk for: rapid decompensation
[2021-10-30 18:00] VITALS: BP 114/78; PULSE 74; RESP 14; TEMP 36.6; O2SAT 99
[2021-10-30] MEDS: HaloperidoL 5 MG TABLET PO (21:20)
[2021-10-30] MEDS: Lithium Carbonate ER 300 MG TABLET.ER 1200 MG PO (21:22)
[2021-10-30] MEDS: traZODone HCL 25 MG HALFTAB 37.5 MG PO (21:29)
[2021-10-31 08:11] VITALS: BP 119/78; PULSE 82; RESP 17; TEMP 36.8; O2SAT 100
[2021-10-31] MEDS: Multivitamin TABLET 1 TAB PO (08:17)
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
--- NOTE | 2021-10-31 14:13 | PC.NURSE ---
Pt ready and aware of discharge. Pt with bright affect and reported improved mood. PT denies SI/HI, denied depression and anxiety. Discharge instructions discussed, all questions answered. Pt declined to have staff arrange a PCP appointment with her and stated that she will make an appointment herself. Belongings returned. Pt ambulated off unit with steady gait.
== END 2021-10-31 14:13 | disposition home or self-care (01) | DRG 753 ==
LOC: HO.ED 15:18 → HO.PADLT16 10-18 20:32
PROVIDERS: Physician Assistant; Admitting Provider Psychiatry & Neurology Psychiatry; Emergency Provider Emergency Medicine; PCP Internal Medicine; Visit Provider Psychiatry & Neurology Psychiatry
DX: F31.10 Bipolar disorder, current episode manic without psychotic features, unspecified (principal); R45.851 Suicidal ideations; Z20.822 Contact with and (suspected) exposure to COVID-19; Z79.899 Other long term (current) drug therapy
CPT/HCPCS: 36415; 70450; 80048; 80076; 80178; 80307; 81001; 81025; 85025; 87491; 87591; 87635; 96372; 99285

== ENCOUNTER 2022-06-12 11:21 | Outpatient (REF) | payer BC, OTHER, SELFPAY ==
[2022-06-12 12:43] LABS: Estimated Average Glucose 91 mg/dL; Hemoglobin A1c % 4.8 %
[2022-06-12 13:03] LABS: Cholesterol 169 mg/dL; HDL Cholesterol 65 mg/dL; LDL Cholesterol Calculated 93 mg/dl; Triglycerides 58 mg/dL
[2022-06-12 13:26] LABS: Thyroid Stimulating Hormone 0.71 uIU/mL (0.32-4.0)
== END 2022-06-12 11:22 | disposition home or self-care (01) ==
LOC: HO.LAB 11:21
PROVIDERS: Visit Provider Nurse Practitioner Psychiatric/Mental Health
DX: Z79.899 Other long term (current) drug therapy (principal)
CPT/HCPCS: 36415; 80061; 83036; 84443

== ENCOUNTER 2022-11-18 10:33 | Outpatient (REF) | payer OTHER, SELFPAY ==
--- NOTE | 2022-11-18 | ECG_ITS ---
Test Reason : F31.89 Blood Pressure : / mmHG Vent. Rate : 048 BPM Atrial Rate : 048 BPM P-R Int : 178 ms QRS Dur : 082 ms QT Int : 446 ms P-R-T Axes : 009 040 056 degrees QTc Int : 398 ms Sinus bradycardia with sinus arrhythmia Otherwise normal ECG No previous ECGs available Referred By: Alma Haq Electronically Signed By:ALBERT PAIGE MD
[2022-11-18 10:48] LABS: MANUAL DIFF FLAG NO
[2022-11-18 12:13] LABS: Basophils Percent Auto 0.6 % (0-2); Eosinophils Absolute Auto 0.1 X10*3/uL (0.0-0.4); Eosinophils Percent Auto 2.2 % (0-4); Hematocrit 42.6 % (37.0-47.0); Imm Gran Abs Auto 0.01 X10*3/uL (0.00-0.03); Imm Gran Pct Auto 0.2 % (0.0-0.4); Lymphocytes Absolute Auto 2.3 X10*3/uL (1.2-4.9); Lymphocytes Percent Auto 41.9 % (20-40); Mean Corpuscular HGB Conc 32.9 g/dl (31.0-35.0); Mean Corpuscular Volume 94.5 fL (80.0-98.0); Monocytes Absolute Auto 0.3 X10*3/uL (0.1-1.2); Neutrophils Absolute Auto 2.7 x10*3/uL (2.0-8.3); Neutrophils Percent Auto 50.1 % (45-73); Platelet Count 250 X10*3/uL (160-400); Red Blood Count 4.51 X10*6/uL (4.20-5.50); Red Cell Distribution Width 12.5 % (11.0-16.0); White Blood Count 5.4 X10*3/uL (4.8-10.8)
[2022-11-18 12:58] LABS: Alanine Aminotransferase 11 U/L (0-31); Albumin Level 4.2 g/dL (3.5-5.0); Alkaline Phosphatase 72 U/L (39-117); Anion Gap 12 (12-20); Aspartate Amino Transferase 13 U/L (5-31); Bilirubin Direct < 0.2 mg/dL (0.0-0.5); Bilirubin Total 0.6 mg/dL (0.0-1.0); Blood Urea Nitrogen 12 mg/dL (9-16); Carbon Dioxide 25 mmol/L (22-29); Chloride 108 mmol/L (96-108); Cholesterol 180 mg/dL; Estimated Glomerular Filt Rate > 60; Glucose Random 78 mg/dL (60-115); HDL Cholesterol 65 mg/dL; LDL Cholesterol Calculated 105 mg/dl; Potassium 4.6 mmol/L (3.3-5.1); Sodium 140 mmol/L (135-145); Total Protein 6.7 g/dL (6.5-8.0); Triglycerides 53 mg/dL
[2022-11-18 13:18] LABS: Thyroid Stimulating Hormone 1.03 uIU/mL (0.32-4.0)
== END 2022-11-18 10:34 | disposition home or self-care (01) ==
LOC: HO.LAB 10:33
PROVIDERS: Visit Provider Psychiatry & Neurology Psychiatry
DX: F31.89 Other bipolar disorder (principal); Z79.899 Other long term (current) drug therapy
CPT/HCPCS: 36415; 80048; 80061; 80076; 84443; 85025; 93005